=== PATIENT | male | born 1940 | race Caucasian/White ===

== ENCOUNTER 2018-08-06 19:50 | Emergency (ER) | payer OTHER ==
[~2018-08-06] VITALS: Ht 175.3 cm; Wt 68.9 kg
[2018-08-07] MEDS ORDERED: FLAGYL500MG PO (09:48)
[2018-08-07] MEDS ORDERED: CIPRO500 MG PO (09:48)
== END 2018-08-07 12:26 | disposition home or self-care (01) ==
LOC: ER 19:50
DX: K57.32 Diverticulitis of large intestine without perforation or abscess without bleeding (principal); R10.32 Left lower quadrant pain

== ENCOUNTER 2018-11-12 06:00 | Day surgery (SDC) | payer OTHER ==
[~2018-11-12 06:00] MED LIST: CIPRO500 MG PO; FLAGYL500MG PO; RANITIDINE HCL150 M1 PO; SINGULAIR10 MG PO
[2018-11-16] MEDS ORDERED: COLACE100 MG PO (15:31)
[2018-11-16] MEDS ORDERED: PERCOCET 5-3251 EACH PO (15:31)
== END 2018-11-12 12:15 | disposition home or self-care (01) ==
LOC: AMB-ENDOS 06:00
DX: D12.8 Benign neoplasm of rectum (principal); K57.32 Diverticulitis of large intestine without perforation or abscess without bleeding; K64.8 Other hemorrhoids

== ENCOUNTER → 2018-11-16 | Day surgery (SDC) | payer OTHER ==
[~2018-11-16] MED LIST changes: +COLACE100 MG PO; +PERCOCET 5-3251 EACH PO
== END | disposition home or self-care (01) ==
LOC: CIR.AMB 08:09
DX: K64.8 Other hemorrhoids (principal)

== ENCOUNTER 2020-09-30 15:26 | Emergency (ER) | payer OTHER ==
[~2020-09-30] VITALS: Ht 175.3 cm; Wt 73.5 kg
[2020-09-30] MEDS ORDERED: PEPCID AC20 MG (15:43)
[2020-09-30] MEDS ORDERED: SINGULAIR10 MG (15:44)
[2020-09-30] MEDS ORDERED: FLAGYL500MG PO (19:21)
[2020-09-30] MEDS ORDERED: CIPRO500 MG PO (19:21)
[2020-09-30] MEDS ORDERED: KETO10TA2 PO (19:32)
== END 2020-09-30 19:47 | disposition home or self-care (01) ==
LOC: ER 15:26
DX: K57.32 Diverticulitis of large intestine without perforation or abscess without bleeding (principal)

== ENCOUNTER 2020-10-05 11:12 | Emergency (ER) | payer OTHER ==
[~2020-10-05] VITALS: Ht 175.3 cm; Wt 73.0 kg
[~2020-10-05 11:12] MED LIST changes: +KETO10TA2 PO; +PEPCID AC20 MG; +SINGULAIR10 MG
[2020-10-05] MEDS ORDERED: ANORO ELLIPTA1 EACH (11:33)
[2020-10-05] MEDS ORDERED: ULTRAM50 MG PO (17:20)
== END 2020-10-05 17:27 | disposition home or self-care (01) ==
LOC: ER 11:12
DX: K57.32 Diverticulitis of large intestine without perforation or abscess without bleeding (principal); R10.32 Left lower quadrant pain

== ENCOUNTER 2020-10-20 13:49 | Emergency (ER) | payer OTHER ==
[~2020-10-20] VITALS: Ht 175.3 cm; Wt 73.5 kg
[~2020-10-20 13:49] MED LIST changes: +ANORO ELLIPTA1 EACH; +ULTRAM50 MG PO
== END 2020-10-20 20:21 | disposition home or self-care (01) ==
LOC: ER 13:49
DX: K57.30 Diverticulosis of large intestine without perforation or abscess without bleeding (principal); R10.32 Left lower quadrant pain; R10.31 Right lower quadrant pain; B96.0 Mycoplasma pneumoniae [M. pneumoniae] as the cause of diseases classified elsewhere

== ENCOUNTER 2022-10-21 15:00 | Emergency (ER) | payer OTHER ==
[~2022-10-21] VITALS: Ht 175.3 cm; Wt 73.5 kg
[2022-10-21] MEDS ORDERED: PEPCID AC20 MG PO (19:12)
[2022-10-21] MEDS ORDERED: METRONIDAZOLE500 MG PO (19:12)
[2022-10-21] MEDS ORDERED: CIPRO500 MG PO (19:12)
== END 2022-10-21 19:36 | disposition home or self-care (01) ==
LOC: ER 15:00
DX: K57.32 Diverticulitis of large intestine without perforation or abscess without bleeding (principal); J44.9 Chronic obstructive pulmonary disease, unspecified; K64.8 Other hemorrhoids; K80.20 Calculus of gallbladder without cholecystitis without obstruction

== ENCOUNTER 2023-04-28 08:05 | Day surgery (SDC) | payer OTHER ==
[~2023-04-28 08:05] MED LIST changes: +METRONIDAZOLE500 MG PO; +PEPCID AC20 MG PO
== END 2023-04-28 14:40 | disposition home or self-care (01) ==
LOC: AMB-ENDOS 08:05 → CIR.AMB 12:00 → AMB-ENDOS 14:40
PROVIDERS: ATTEND Surgery
DX: K57.32 Diverticulitis of large intestine without perforation or abscess without bleeding (principal); K57.30 Diverticulosis of large intestine without perforation or abscess without bleeding; K62.89 Other specified diseases of anus and rectum; K62.5 Hemorrhage of anus and rectum; K64.2 Third degree hemorrhoids; Z20.822 Contact with and (suspected) exposure to COVID-19